=== PATIENT | male | born 1955 | race Caucasian/White ===

== ENCOUNTER 2019-01-15 09:30 | Day surgery (SDC) | payer MEDICAID, OTHER ==
[~2019-01-15] VITALS: Ht 188 cm; Wt 96.5 kg
[2019-01-15] VITALS (12 sets, daily range): BP systolic 94–122; BP diastolic 61–74; PULSE 64–72; RESP 10–18; Ht 188 cm; Wt 96.5 kg
--- NOTE | 2019-01-15 08:17 | HPN ---
Date/Time of Note Date/Time of Note DATE: 01/15/19 TIME: 08:17 Interval H&P Admission Note Pt. seen H&P reviewed: No system changes CELE EMERSON MD Jan 15, 2019 08:17
[2019-01-15] MEDS ORDERED: ADAL40PE INJ (10:02)
[2019-01-15] MEDS ORDERED: LISI10TA2 PO (10:04)
[2019-01-15] MEDS ORDERED: OMEP20CA16 PO (10:04)
[2019-01-15] MEDS ORDERED: ATOR10TA65 PO (10:04)
[2019-01-15] MEDS ORDERED: FISH1CAP PO (10:04)
[2019-01-15] MEDS ORDERED: ASPI-903 PO (10:04)
--- NOTE | 2019-01-15 11:06 | PREAC ---
Date/Time of Note Date/Time of Note DATE: 01/15/19 TIME: 10:44 Anesthesia Eval and Record Evaluation Time Pre-Procedure Interview DATE: 01/15/19 TIME: 10:44 Age 63 Sex male NPO: 8 hrs Preoperative diagnosis left knee pain Planned procedure left knee arthroscopy, partial lateral meniscectomy Past Medical History Past Medical History: Includes Cardio: HTN, Dyslipidemia Endo: Other (pre DM) Musculoskeletal: Osteoarthritis, Rheumatoid arthritis Recreational drugs: Marijuana Surgery & Anesthesia Issues No known issue Meds Anticoagulation: No Beta Corina within 24 hr: No Reason Beta Ocrina not given: Pt. not on B-Corina Reported Medications Fish Oil/Dha/Epa (FISH OIL 1,200 MG FISH OIL) 1 Each Capsule, 1 CAP PO DAILY, CAP 01/15/19 Aspirin* (Aspirin* Chew) 81 Mg Tab.chew, 81 MG PO DAILY, TAB.CHEW 01/15/19 Omeprazole* (Omeprazole*) 20 Mg Capsule.dr, 20 MG PO DAILY, #30 CAP 01/15/19 Atorvastatin Calcium (Atorvastatin Calcium) 10 Mg Tablet, 10 MG PO QHS, #30 TAB 01/15/19 Lisinopril* (Lisinopril*) 10 Mg Tablet, 10 MG PO DAILY, #30 TAB 01/15/19 Adalimumab (Humira) 40 Mg/0.8 Ml Pen.ij.kit, 40 MG INJ Q14D 01/15/19 Meds reviewed: Yes Allergies Coded Allergies: No Known Allergy (Unverified , 01/15/19) Allergies Reviewed: Yes Labs/Studies Labs Reviewed: Reviewed by anesthesiologist test: N/A Studies: ECG, CXR Pre-procedure Exam Last vitals Vital Signs Date Temp Pulse Resp B/P (MAP) Pulse Ox O2 O2 Flow FiO2 Time Delivery Rate 01/15/19 98.4 72 16 122/73 97 Room Air 10:25 (89) Airway: Adequate mouth opening, Adequate thyromental dist Mallampati: Mallampati II Teeth: Normal Lung: Normal Heart: Normal ASA Physical Status ASA physical status: 3 Emergency: None Planned Anesthetic General/MAC: LMA Planned Pain Management Parenteral pain med, Local by surgeon Pre-operative Attestations Prior to commencing anesthesia and surgery, the patient was re-evaluated, there was verification of: *The patient's identity *The results of appropriate recent lab work and preoperative vital signs *The above evaluation not changing prior to induction *Anesthetic plan, risk benefits, alternative and complications discussed with patient/family; questions answered; patient/family understands, accepts and wishes to proceed. AINSLEY CARNEY Jan 15, 2019 10:59
[2019-01-15] MEDS ORDERED: MIDAZOLAM 1 MG/ML 2 ML INJ ONE (11:14)
[2019-01-15] MEDS ORDERED: FENTAnyl 50 MCG/ML VIAL ONE ×2 (11:14→12:59)
[2019-01-15] MEDS ORDERED: PROPOFOL 20 ML ONE (11:14)
[2019-01-15] MEDS ORDERED: LIDOCAINE 2% (SDV) 5 ML INJ ONE (11:14)
[2019-01-15] MEDS ORDERED: LIDOCAINE 1% (MPF) 30 ML INJ ONE (12:19)
[2019-01-15] MEDS ORDERED: ROPIVACAINE 0.5 % 30 ML VIAL ONE (12:19)
[2019-01-15] MEDS ORDERED: morphine SULFATE/PF (10 MG/10 ML) INJ ONE (12:20)
[2019-01-15] MEDS ORDERED: FAMOTIDINE 20 MG INJ ONE (12:20)
[2019-01-15] MEDS ORDERED: DEXAMETHASONE 4 MG/ML 5 ML INJ ONE (12:20)
[2019-01-15] MEDS ORDERED: METOCLOPRAMIDE 10 MG INJ ONE (12:20)
[2019-01-15] MEDS ORDERED: NEOMYC/POLYMYX/BACIT 30 GM OINT ONE (12:20)
[2019-01-15] MEDS ORDERED: CEFAZOLIN 1 GM INJ ONE (12:20)
[2019-01-15] MEDS ORDERED: ONDANSETRON 4 MG INJ ONE (12:20)
[2019-01-15] MEDS ORDERED: LABETALOL HCL 20MG INJ IV PRN (12:30)
[2019-01-15] MEDS ORDERED: ONDANSETRON 4 MG INJ IV PRN (12:30)
[2019-01-15] MEDS ORDERED: OXYCODONE/ACETAMINOPHEN (5/325) TAB PO PRN ×2 (12:30)
[2019-01-15] MEDS ORDERED: MEPERIDINE 25 MG INJ IV PRN (12:30)
[2019-01-15] MEDS ORDERED: hydrALAzine 20 MG INJ IV PRN (12:30)
[2019-01-15] MEDS ORDERED: HYDROmorphONE 1 MG/5 ML IV SYRINGE IV PRN ×3 (12:30)
--- NOTE | 2019-01-15 12:37 | OPR ---
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 The patient has complained of having catching, clicking and locking symptoms over the medial aspect of the knee with no relief with physical therapy or anti- inflammatory. Patient has decided to proceed with surgery. RISK NOTE: Patient was explained the risks and benefits of the surgery in the patients [place] language, including not limited to infection, bleeding, loss of limb, loss of life, need for future surgery, risk of anesthesia, risk of injury to the blood vessels and nerves, ligaments or tendons, and risk of deep vein thrombosis. Patient understood these risks and wished to proceed with the surgery. Procedure Description The correct operative site was noted and marked in the preoperative holding area. The patient was then brought back into the operative theater, placed supine on the operative table. Left knee was examined under anesthesia. Range of motion was 0-120. There is no varus or valgus or anterior or posterior instability. There is crepitus noticed at the patellofemoral joint. Tourniquet was then placed on the operative extremity thigh non-sterilely. Patient was then given preoperative antibiotics and then prepped and draped in normal sterile fashion. A timeout was taken and all parties in the room agreed it was the correct patient, correct extremity and correct procedure. Standard anterior lateral portal was created and the knee joint was entered with a blunt tipped trocar, followed by 30 arthroscope. Inflow was achieved with a pump and the pressure maintained at approximately 50 mmHg. A routine arthroscopic surgery was performed. Suprapatella pouch was unremarkable. The undersurface of the patella showed advanced grade 1 -2 chondromalacia . The trochlea showed grade III/IV chondromalacia of the central trochlear groove The medial and lateral gutters were visualized. There were no loose bodies seen. There is an inflamed hypertrophic plica noted in the anterior and superior medial aspect of the knee. The popliteus hiatus was entered and was normal. Lateral compartment was entered and grade 1 chondromalacia was seen on the lateral tibial plateau and femoral condyle. Scope was then brought into the intercondylar notch and an anteromedial portal was made. Shaver was brought into the knee and small amount of fat pad and scar tissue was initially gently debrided. The anterior cruciate ligament was intact and probed. The knee was brought into a valgus position and the medial compartment was entered. The articular surface of the medial femoral condyle and medial tibial plateau revealed diffuse grade 3/4 chondromalacia. There was a degenerative posterior horn medial meniscus tear extending to the midbody that was associated with a radial tear that visualized and debrided gently with a motorized shaver and basket forceps, the posterior horn demonstrated a degenerative tear and fibrillation pattern. The motorized shaver and basket biters were used to smooth the remaining meniscal rim, with care to maintain the peripheral meniscal rim. A probe was introduced and this was carefully probed and was found to be stable. Chondroplasty was then carried out along the weightbearing aspect of the medial femoral condyle, medial tibial plateau, taking care to remove only loose articular cartilage debris and preserve functional articular cartilage. The lateral compartment was reentered and the loose chondral debris was debrided with motorized shaver. There was a inner rim tear of the lateral meniscus from the posterior horn to the mid body that was debrided with both the shaver and a basket forceps. It was reprobed and found to be stable. Chondroplasty was then carried out along the weightbearing portion of the lateral femoral condyle and tibial plateau taking care to remove only loose articular cartilage debris and preserved functional articular cartilage. Attention was then directed back to the patella femoral joint and a chondroplasty was carried out along the weightbearing aspect of the trochlea and undersurface of the patella to again remove loose debris and maintain functional active articular cartilage. The knee was then irrigated with additional 2 L of lactated Ringers solution. Excess fluid was then drained. Range of motion was then attempted showing 0- 125 degrees of motion The portal sites were closed with 4-0 Monocryl and Steri-Strips and dressed with Xeroform and triple antibiotic ointment. The knee was then injected with 20 cc of 0.5% plain ropivacaine. A dry sterile dressing was then applied, followed by a compressive bulky soft bandage and an MARCO ANTONIO Wrap. At the completion of the surgery patient had palpable pulses, soft arms and brisk cap refill. The patient tolerated the procedure well and was taken to the PACU without any complications. All sponge and needle counts were correct. Patient will begin pain medicine and 48 hours of antibiotics as well as aspirin 81 mg for the duration of 4 weeks postoperatively RAMY EMERSON MD Jan 15, 2019 12:37
[2019-01-15] MEDS ORDERED: KETOROLAC 30 MG INJ IV SCH (13:00)
[2019-01-15] MEDS ORDERED: morphine 2 MG INJ IV PRN (13:00)
[2019-01-15] MEDS ORDERED: KETOROLAC 30 MG INJ ONE (13:03)
--- NOTE | 2019-01-15 14:23 | PAC ---
Date/Time of Note Date/Time of Note DATE: 01/15/19 TIME: 14:22 Post-Anesthesia Notes Post-Anesthesia Note Last documented vital signs Vital Signs Date Temp Pulse Resp B/P (MAP) Pulse Ox O2 O2 Flow FiO2 Time Delivery Rate 01/15/19 64 16 96/61 (73) 93 Room Air 14:06 01/15/19 97.7 13:39 Activity: WNL Respiratory function: WNL Cardiovascular function: WNL Mental status: Baseline Pain reasonably controlled: Yes Hydration appropriate: Yes Nausea/Vomiting absent: Yes AINSLEY CARNEY Jan 15, 2019 14:23
== END 2019-01-15 15:10 | disposition home or self-care (01) ==
LOC: SDS 09:30
PROVIDERS: ATTEND Orthopaedic Surgery
DX: M23.252 Derangement of posterior horn of lateral meniscus due to old tear or injury, left knee (principal); M23.222 Derangement of posterior horn of medial meniscus due to old tear or injury, left knee; M94.262 Chondromalacia, left knee; E11.9 Type 2 diabetes mellitus without complications; I10 Essential (primary) hypertension; M06.9 Rheumatoid arthritis, unspecified
CPT/HCPCS: 29880; 82306; 85610; 85730; J0690; J1100; J1885; J2250; J2405; J2765; J2795; J3010; J2274